=== PATIENT | male | born 1980 ===

== ENCOUNTER 2017-02-06 18:37 | Emergency (ER) | payer SELFPAY ==
[2017-02-06] MEDS ORDERED: IBUPROFEN 600 MG TABLET ONE (19:43)
[2017-02-06] MEDS ORDERED: MECLIZINE HCL 25 MG TABLET ONE (19:43)
[2017-02-06] MEDS ORDERED: AMLODIPINE BESYLATE 5 MG TABLET ONE ×2 (19:44→20:32)
--- NOTE | 2017-02-06 20:03 | CT ---
Name: IVTO CORDERO Exam: CT head without contrast Comparison: None Clinical history: Dizziness and headache Technique: Helical CT was performed through the head. Angled axial reconstructions were obtained. Sagittal and coronal reconstructions were obtained as well. No contrast was given. An automated dose reduction technique was used to minimize patient radiation dose. Findings: There is no shift of the midline structures. Ventricles are of normal size and configuration. There is no mass, mass effect or hemorrhage. Cisterns are uneffaced. Posterior fossa is unremarkable. There is no fracture. Visualized paranasal sinuses and mastoid air cells are within normal limits. Impression: Negative unenhanced CT of the head Note: The above report was uploaded to [facility]'s electronic medical records system at 1959 hours.
== END 2017-02-06 20:41 | disposition home or self-care (01) ==
LOC: ED 18:37
DX: H81.312 Aural vertigo, left ear (principal); I16.0 Hypertensive urgency; J45.909 Unspecified asthma, uncomplicated; E66.9 Obesity, unspecified